=== PATIENT | male | born 1970 | race Caucasian/White ===

== ENCOUNTER 2019-08-07 12:41 | Emergency (ER) | payer OTHER ==
[~2019-08-07] VITALS: Ht 180.3 cm; Wt 79.5 kg
[2019-08-07 12:51] VITALS: Ht 180.3 cm; Wt 79.5 kg
[2019-08-07] MEDS ORDERED: BLOOD PRESSURE MED (13:00)
[2019-08-07] MEDS ORDERED: TRAZODONE HCL150 MG (13:00)
[2019-08-07] MEDS ORDERED: SUBOXONE 2 MG-01 TAB ×2 (13:00→13:01)
[2019-08-07] MEDS ORDERED: ZIAC 5-6.25 MG1 TAB (13:00)
[2019-08-07] MEDS ORDERED: TERAZOSIN HCL2 MG (13:01)
[2019-08-07] MEDS ORDERED: KLONOPIN1 MG (13:01)
[2019-08-07] MEDS ORDERED: PROZAC20 MG (13:01)
[2019-08-07 13:24] LABS: BASOPHILS 0.1 % (0-2); HEMATOCRIT 43.3 % (42.0-54.0); HEMOGLOBIN 14.7 g/dL (13.5-17.5); IMMATURE GRANULOCYTES 0.2 % (0-5); LYMPHOCYTES 14.1 % (15-50); MCH 30.1 pg (26.0-34.0); MCHC 33.9 g/dL (31.0-37.0); MCV 88.7 fL (80.0-100.0); MEAN PLATELET VOLUME 9.1 fL (7.4-10.4); MONOCYTES 8.1 % (2-11); NEUTROPHILS 76.5 % (40-80); PLATELET COUNT 310 10x3/uL (130-400); RBC 4.88 10x6/uL (4.20-6.10); RDW 12.6 % (11.5-14.5); WBC 8.2 10x3/uL (4.8-10.8)
[2019-08-07 13:37] LABS: CALC OSMOLALITY 278 mosm/kg (275-300); CARBON DIOXIDE 26.2 mmol/L (21.0-32.0); CHLORIDE - SERUM 105 mmol/L (98-107); CREATININE - SERUM 0.8 mg/dL (0.6-1.3); GLUCOSE 119 mg/dL (74-106); POTASSIUM - SERUM 4.1 mmol/L (3.5-5.1); SODIUM 140 mmol/L (136-145); UREA NITROGEN 11 mg/dL (7-18); eGFR NON AFRICAN AMERICAN > 90 mL/min (90-120)
[2019-08-07 13:39] LABS: APTT 29.8 SECONDS (22.8-39.4); INR 1.07 (0.85-1.17); PROTIME 13.9 SECONDS (11.6-15.0)
[2019-08-07 13:54] LABS: ALBUMIN 3.6 g/dL (3.4-5.0); ALKALINE PHOSPHATASE 63 U/L (30-120); ALT (SGPT) 20 U/L (10-68); BILIRUBIN - TOTAL 0.52 mg/dL (0.2-1.3); CKMB 1.4 U/L (0.0-3.6); CREATINE KINASE 97 UL (21-232); PROTEIN - SERUM 7.2 g/dL (6.4-8.2)
[2019-08-07 13:57] LABS: TROPONIN-I < 0.017 ng/mL (0.000-0.060)
[2019-08-07 16:52] VITALS: BP 146/86
== END 2019-08-07 16:25 | disposition home or self-care (01) ==
LOC: D.ER 12:41
PROVIDERS: Family Medicine
DX: R07.89 Other chest pain (principal); F15.10 Other stimulant abuse, uncomplicated; I10 Essential (primary) hypertension; J44.9 Chronic obstructive pulmonary disease, unspecified; Z72.0 Tobacco use